=== PATIENT | female | born 1985 | race Caucasian/White ===

== ENCOUNTER 2017-12-27 13:54 | Outpatient (CLI) | payer OTHER ==
[2017-12-27 18:12] LABS: ADD UMIC NO; UR ASCORBIC ACID 40 mg/dL (NEGATIVE); UR BACTERIA FEW /HPF (NONE SEEN); UR BILIRUBIN (Dip) NEGATIVE (NEGATIVE); UR BLOOD (Dip) NEGATIVE (NEGATIVE); UR CALCIUM OXALATE CRYSTAL FEW /HPF (NONE SEEN); UR CLARITY SLIGHTLY CLOUDY (CLEAR); UR COLOR YELLOW (YELLOW); UR GLUCOSE (Dip) 3+ mg/dL (NEGATIVE); UR KETONES (Dip) 1+ mg/dL (NEGATIVE); UR LEUKOCYTE ESTERASE (Dip) NEGATIVE Leu/ul (NEGATIVE); UR MUCUS MODERATE /HPF (NONE SEEN); UR NITRITE (Dip) NEGATIVE (NEGATIVE); UR RBC 2 /HPF (0-5); UR SPECIFIC GRAVITY (Dip) 1.018 (1.003-1.030); UR TOTAL PROTEIN (Dip) NEGATIVE (NEGATIVE); UR UROBILINOGEN (Dip) NEGATIVE (NEGATIVE); UR WBC 4 /HPF (0-5)
[2017-12-27] MEDS: HYDROCODONE/APAP (5/325) TAB PO (20:18)
== END 2017-12-27 20:42 | disposition home or self-care (01) ==
LOC: OBT 13:54 → L-D 13:57 → OBT 20:42
DX: O26.893 Other specified pregnancy related conditions, third trimester (principal); Z3A.31 31 weeks gestation of pregnancy; R10.2 Pelvic and perineal pain
CPT/HCPCS: 76815; 76817; 81001; 81003; 87086

== ENCOUNTER 2018-01-02 19:17 | Outpatient (CLI) | payer OTHER ==
[2018-01-02 20:13] LABS: ADD MAN DIFF? NO; ADD UMIC YES; UR ASCORBIC ACID 40 mg/dL (NEGATIVE); UR BACTERIA FEW /HPF (NONE SEEN); UR BILIRUBIN (Dip) NEGATIVE (NEGATIVE); UR BLOOD (Dip) NEGATIVE (NEGATIVE); UR CALCIUM OXALATE CRYSTAL MANY /HPF (NONE SEEN); UR CLARITY SLIGHTLY CLOUDY (CLEAR); UR COLOR YELLOW (YELLOW); UR GLUCOSE (Dip) 2+ mg/dL (NEGATIVE); UR KETONES (Dip) 2+ mg/dL (NEGATIVE); UR LEUKOCYTE ESTERASE (Dip) NEGATIVE Leu/ul (NEGATIVE); UR MUCUS FEW /HPF (NONE SEEN); UR NITRITE (Dip) NEGATIVE (NEGATIVE); UR RBC 2 /HPF (0-5); UR SPECIFIC GRAVITY (Dip) 1.026 (1.003-1.030); UR SQUAMOUS EPITHELIAL CELL FEW /HPF (FEW); UR TOTAL PROTEIN (Dip) 1+ mg/dl (NEGATIVE); UR UROBILINOGEN (Dip) NEGATIVE (NEGATIVE); UR WBC 5 /HPF (0-5)
[2018-01-02 20:17] LABS: WHITE BLOOD COUNT 10.6 10^3/ul (4.8-10.8)
[2018-01-02 20:17] LABS: BASOPHIL # 0.1 10^3/ul (0.0-0.1); BASOPHILS % 0.5 % (0.0-2.0); EOSINOPHILS # 0.1 10^3/ul (0.0-0.5); EOSINOPHILS % 0.8 % (0.0-7.0); HEMATOCRIT 30.2 % (37.0-47.0); HEMOGLOBIN 10.2 g/dl (12.0-16.0); LYMPHOCYTES # 2.6 10^3/ul (0.8-2.9); LYMPHOCYTES % 24.5 % (15.0-51.0); MEAN CORPUSCULAR HEMOGLOBIN 28.3 pg (29.0-33.0); MEAN CORPUSCULAR HGB CONC 33.8 g/dl (32.0-37.0); MEAN CORPUSCULAR VOLUME 83.7 fl (82.0-101.0); MEAN PLATELET VOLUME 10.2 fl (7.4-10.4); MONOCYTE # 0.5 10^3/ul (0.3-0.9); MONOCYTES % 4.9 % (0.0-11.0); NEUTROPHIL # 7.2 10^3/ul (1.6-7.5); NEUTROPHILS % 67.2 % (39.0-77.0); PLATELET COUNT 205 10^3/UL (140-415); RED BLOOD COUNT 3.61 10^6/ul (4.20-5.40); RED CELL DISTRIBUTION WIDTH 13.7 % (11.5-14.5)
[2018-01-02 20:34] LABS: ALANINE AMINOTRANSFERASE 14 IU/L (13-69); ALBUMIN 3.4 g/dl (3.3-4.9); ALKALINE PHOSPHATASE 73 IU/L (42-121); ANION GAP 12 (5-13); ASPARTATE AMINO TRANSFERASE 23 IU/L (15-46); BLOOD UREA NITROGEN 8 mg/dl (7-20); CALCIUM 9.1 mg/dl (8.4-10.2); CARBON DIOXIDE 18 mmol/L (21-31); CHLORIDE 108 mmol/L (97-110); CREATININE 0.49 mg/dl (0.44-1.00); Estimated GFR > 60 mL/min (>60); GLUCOSE 129 mg/dl (70-220); POTASSIUM 3.9 mmol/L (3.5-5.1); SODIUM 138 mmol/L (135-144); URIC ACID 4.8 mg/dl (3.1-7.9)
[2018-01-02 20:37] LABS: INR 0.91; PROTIME 12.3 Sec (11.9-14.9)
[2018-01-02 20:38] LABS: PARTIAL THROMBOPLASTIN TIME 24.5 Sec (23.0-35.0)
== END 2018-01-02 23:02 | disposition home or self-care (01) ==
LOC: OBT 19:17 → L-D 19:18 → OBT 23:02
DX: O13.3 Gestational [pregnancy-induced] hypertension without significant proteinuria, third trimester (principal); Z3A.32 32 weeks gestation of pregnancy
CPT/HCPCS: 36415; 76818; 80053; 81001; 84560; 85025; 85610; 85730; 87086

== ENCOUNTER 2018-01-05 13:08 | Inpatient (IN) | payer OTHER ==
[2018-01-05 14:05] LABS: ADD MAN DIFF? NO
[2018-01-05 14:09] LABS: BASOPHILS % 0.3 % (0.0-2.0); EOSINOPHILS # 0.1 10^3/ul (0.0-0.5); HEMATOCRIT 30.8 % (37.0-47.0); HEMOGLOBIN 10.2 g/dl (12.0-16.0); LYMPHOCYTES # 2.4 10^3/ul (0.8-2.9); LYMPHOCYTES % 23.6 % (15.0-51.0); MEAN CORPUSCULAR HEMOGLOBIN 27.7 pg (29.0-33.0); MEAN CORPUSCULAR HGB CONC 33.1 g/dl (32.0-37.0); MEAN CORPUSCULAR VOLUME 83.7 fl (82.0-101.0); MEAN PLATELET VOLUME 10.8 fl (7.4-10.4); MONOCYTE # 0.6 10^3/ul (0.3-0.9); MONOCYTES % 5.6 % (0.0-11.0); NEUTROPHIL # 6.8 10^3/ul (1.6-7.5); PLATELET COUNT 178 10^3/UL (140-415); RED BLOOD COUNT 3.68 10^6/ul (4.20-5.40); RED CELL DISTRIBUTION WIDTH 13.9 % (11.5-14.5)
[2018-01-05 14:09] LABS: WHITE BLOOD COUNT 10.2 10^3/ul (4.8-10.8)
[2018-01-05 14:28] LABS: ALANINE AMINOTRANSFERASE 22 IU/L (13-69); ALBUMIN 3.6 g/dl (3.3-4.9); ALBUMIN/GLOBULIN RATIO 1.33; ALKALINE PHOSPHATASE 68 IU/L (42-121); ANION GAP 10 (5-13); ASPARTATE AMINO TRANSFERASE 20 IU/L (15-46); BILIRUBIN,INDIRECT 0.1 mg/dl (0-1.1); BILIRUBIN,TOTAL 0.1 mg/dl (0.2-1.3); BLOOD UREA NITROGEN 6 mg/dl (7-20); CALCIUM 9.3 mg/dl (8.4-10.2); CARBON DIOXIDE 22 mmol/L (21-31); CHLORIDE 106 mmol/L (97-110); CREATININE 0.51 mg/dl (0.44-1.00); Estimated GFR > 60 mL/min (>60); GLUCOSE 78 mg/dl (70-220); INR 0.86; POTASSIUM 4.1 mmol/L (3.5-5.1); PROTIME 11.8 Sec (11.9-14.9); PT RATIO 0.9; SODIUM 138 mmol/L (135-144); TOTAL PROTEIN 6.3 g/dl (6.1-8.1); URIC ACID 4.1 mg/dl (3.1-7.9)
[2018-01-05 14:29] LABS: PARTIAL THROMBOPLASTIN TIME 24.2 Sec (23.0-35.0)
[2018-01-05 14:39] LABS: ADD UMIC YES; UR ASCORBIC ACID 40 mg/dL (NEGATIVE); UR BACTERIA FEW /HPF (NONE SEEN); UR BILIRUBIN (Dip) NEGATIVE (NEGATIVE); UR BLOOD (Dip) NEGATIVE (NEGATIVE); UR CLARITY CLOUDY (CLEAR); UR COLOR YELLOW (YELLOW); UR GLUCOSE (Dip) NEGATIVE (NEGATIVE); UR KETONES (Dip) NEGATIVE (NEGATIVE); UR LEUKOCYTE ESTERASE (Dip) NEGATIVE Leu/ul (NEGATIVE); UR MUCUS FEW /HPF (NONE SEEN); UR NITRITE (Dip) NEGATIVE (NEGATIVE); UR RBC 0 /HPF (0-5); UR SPECIFIC GRAVITY (Dip) 1.018 (1.003-1.030); UR TOTAL PROTEIN (Dip) NEGATIVE (NEGATIVE); UR URIC ACID CRYSTAL MANY /HPF (NONE SEEN); UR UROBILINOGEN (Dip) NEGATIVE (NEGATIVE); UR WBC 7 /HPF (0-5)
[2018-01-05] MEDS: LABETALOL 100 MG TAB PO (21:29)
[2018-01-05] MEDS: ACETAMINOPHEN 325 MG TAB PO (23:05)
[2018-01-06] MEDS: ACETAMINOPHEN 325 MG TAB PO (03:03)
[2018-01-06] MEDS: LABETALOL 100 MG TAB PO ×2 (09:12→21:08)
[2018-01-06] MEDS: PRENATAL VITAMIN PO (09:13)
[2018-01-06] MEDS: FERROUS SULFATE (EC) 325 MG TAB PO (09:13)
[2018-01-06] MEDS: PANTOPRAZOLE (EC) 40 MG TAB PO (10:54)
[2018-01-06 13:44] LABS: COLLECTION PERIOD 24 hrs
[2018-01-06 14:35] LABS: COLLECTION PERIOD 24 hrs; CREATININE CLEARANCE 279.9 mls/min (84.0-162.0); CREATININE,URINE RANDOM 37.37 mg/dl (20-320); SCRET 0.51 mg/dl (0.44-1.00); VOLUME 5500 ml/24hrs
[2018-01-06 14:36] LABS: VOLUME 5500 mls
[2018-01-06] MEDS: BETAMET NA PHOS/AC(6 MG/ML) 5ML INJ IM (17:01)
[2018-01-07] MEDS: PANTOPRAZOLE (EC) 40 MG TAB PO (07:44)
[2018-01-07] MEDS: PRENATAL VITAMIN PO (09:05)
[2018-01-07] MEDS: LABETALOL 100 MG TAB PO (09:06)
[2018-01-07] MEDS: FERROUS SULFATE (EC) 325 MG TAB PO (09:08)
[2018-01-07] MEDS: BETAMET NA PHOS/AC(6 MG/ML) 5ML INJ IM (16:56)
== END 2018-01-07 17:20 | disposition home or self-care (01) | DRG 833 ==
LOC: OBT 13:08 → L-D 13:10 → OBT 14:45 → L-D 14:45
DX: O14.03 Mild to moderate pre-eclampsia, third trimester (principal); Z3A.33 33 weeks gestation of pregnancy; Z79.82 Long term (current) use of aspirin
CPT/HCPCS: 36415; 76818; 80053; 81001; 82575; 84156; 84560; 85025; 85384; 85610; 85730

== ENCOUNTER 2018-01-16 22:54 | Outpatient (CLI) | payer OTHER ==
[2018-01-16 23:46] LABS: ADD MAN DIFF? NO
[2018-01-16 23:49] LABS: BASOPHIL # 0.1 10^3/ul (0.0-0.1); BASOPHILS % 0.6 % (0.0-2.0); EOSINOPHILS # 0.2 10^3/ul (0.0-0.5); EOSINOPHILS % 1.4 % (0.0-7.0); HEMATOCRIT 31.1 % (37.0-47.0); HEMOGLOBIN 10.1 g/dl (12.0-16.0); LYMPHOCYTES # 2.8 10^3/ul (0.8-2.9); LYMPHOCYTES % 25.1 % (15.0-51.0); MEAN CORPUSCULAR HEMOGLOBIN 27.8 pg (29.0-33.0); MEAN CORPUSCULAR HGB CONC 32.5 g/dl (32.0-37.0); MEAN CORPUSCULAR VOLUME 85.7 fl (82.0-101.0); MEAN PLATELET VOLUME 11.1 fl (7.4-10.4); MONOCYTE # 0.8 10^3/ul (0.3-0.9); NEUTROPHILS % 63.1 % (39.0-77.0); PLATELET COUNT 189 10^3/UL (140-415); RED BLOOD COUNT 3.63 10^6/ul (4.20-5.40); RED CELL DISTRIBUTION WIDTH 14.6 % (11.5-14.5)
[2018-01-16 23:49] LABS: WHITE BLOOD COUNT 11.1 10^3/ul (4.8-10.8)
[2018-01-17 00:01] LABS: ADD UMIC NO; UR ASCORBIC ACID 20 mg/dL (NEGATIVE); UR BILIRUBIN (Dip) NEGATIVE (NEGATIVE); UR BLOOD (Dip) NEGATIVE (NEGATIVE); UR CALCIUM OXALATE CRYSTAL FEW /HPF (NONE SEEN); UR CLARITY SLIGHTLY CLOUDY (CLEAR); UR COLOR YELLOW (YELLOW); UR GLUCOSE (Dip) NEGATIVE (NEGATIVE); UR KETONES (Dip) TRACE mg/dL (NEGATIVE); UR LEUKOCYTE ESTERASE (Dip) NEGATIVE Leu/ul (NEGATIVE); UR MUCUS FEW /HPF (NONE SEEN); UR NITRITE (Dip) NEGATIVE (NEGATIVE); UR RBC 2 /HPF (0-5); UR SPECIFIC GRAVITY (Dip) 1.019 (1.003-1.030); UR TOTAL PROTEIN (Dip) NEGATIVE (NEGATIVE); UR UROBILINOGEN (Dip) NEGATIVE (NEGATIVE); UR WBC 3 /HPF (0-5)
[2018-01-17 00:07] LABS: ALANINE AMINOTRANSFERASE 15 IU/L (13-69); ALBUMIN 3.6 g/dl (3.3-4.9); ALBUMIN/GLOBULIN RATIO 1.38; ALKALINE PHOSPHATASE 72 IU/L (42-121); ANION GAP 10 (5-13); ASPARTATE AMINO TRANSFERASE 22 IU/L (15-46); BLOOD UREA NITROGEN 8 mg/dl (7-20); CALCIUM 8.7 mg/dl (8.4-10.2); CARBON DIOXIDE 18 mmol/L (21-31); CHLORIDE 107 mmol/L (97-110); CREATININE 0.43 mg/dl (0.44-1.00); Estimated GFR > 60 mL/min (>60); GLUCOSE 155 mg/dl (70-220); SODIUM 135 mmol/L (135-144); TOTAL PROTEIN 6.2 g/dl (6.1-8.1); URIC ACID 4.2 mg/dl (3.1-7.9)
[2018-01-17] MEDS ORDERED: LABETALOL 100 MG TAB PO (01:00)
[2018-01-17] MEDS: ACETAMINOPHEN 500 MG TAB PO (03:06)
== END 2018-01-17 06:10 | disposition home or self-care (01) ==
LOC: OBT 22:54 → L-D 22:54
DX: O13.3 Gestational [pregnancy-induced] hypertension without significant proteinuria, third trimester (principal); O26.893 Other specified pregnancy related conditions, third trimester; R51 Headache; R42 Dizziness and giddiness; H53.8 Other visual disturbances; R06.02 Shortness of breath; Z3A.34 34 weeks gestation of pregnancy
CPT/HCPCS: 36415; 80053; 81001; 81003; 84560; 85025; 87086

== ENCOUNTER 2018-01-17 06:16 | Emergency (ER) | payer OTHER ==
[2018-01-17 07:29] LABS: ADD MAN DIFF? NO
[2018-01-17 07:33] LABS: WHITE BLOOD COUNT 10.9 10^3/ul (4.8-10.8)
[2018-01-17 07:33] LABS: BASOPHIL # 0.1 10^3/ul (0.0-0.1); BASOPHILS % 0.6 % (0.0-2.0); EOSINOPHILS # 0.2 10^3/ul (0.0-0.5); EOSINOPHILS % 1.4 % (0.0-7.0); HEMATOCRIT 32.8 % (37.0-47.0); HEMOGLOBIN 10.5 g/dl (12.0-16.0); LYMPHOCYTES # 2.6 10^3/ul (0.8-2.9); LYMPHOCYTES % 23.9 % (15.0-51.0); MEAN CORPUSCULAR HEMOGLOBIN 27.2 pg (29.0-33.0); MEAN PLATELET VOLUME 11.6 fl (7.4-10.4); MONOCYTE # 0.6 10^3/ul (0.3-0.9); MONOCYTES % 5.9 % (0.0-11.0); NEUTROPHIL # 7.2 10^3/ul (1.6-7.5); PLATELET COUNT 165 10^3/UL (140-415); RED BLOOD COUNT 3.86 10^6/ul (4.20-5.40); RED CELL DISTRIBUTION WIDTH 14.8 % (11.5-14.5)
[2018-01-17 07:36] LABS: ADD UMIC NO; UR ASCORBIC ACID NEGATIVE (NEGATIVE); UR BILIRUBIN (Dip) NEGATIVE (NEGATIVE); UR BLOOD (Dip) NEGATIVE (NEGATIVE); UR CLARITY CLEAR (CLEAR); UR COLOR YELLOW (YELLOW); UR GLUCOSE (Dip) NEGATIVE (NEGATIVE); UR KETONES (Dip) NEGATIVE (NEGATIVE); UR LEUKOCYTE ESTERASE (Dip) NEGATIVE Leu/ul (NEGATIVE); UR NITRITE (Dip) NEGATIVE (NEGATIVE); UR SPECIFIC GRAVITY (Dip) 1.013 (1.003-1.030); UR TOTAL PROTEIN (Dip) NEGATIVE (NEGATIVE); UR UROBILINOGEN (Dip) NEGATIVE (NEGATIVE)
[2018-01-17 07:50] LABS: ALANINE AMINOTRANSFERASE 19 IU/L (13-69); ALBUMIN 3.6 g/dl (3.3-4.9); ALBUMIN/GLOBULIN RATIO 1.33; ALKALINE PHOSPHATASE 76 IU/L (42-121); AMYLASE 44 U/L (11-123); ANION GAP 10 (5-13); ASPARTATE AMINO TRANSFERASE 23 IU/L (15-46); BILIRUBIN,INDIRECT 0.1 mg/dl (0-1.1); BILIRUBIN,TOTAL 0.1 mg/dl (0.2-1.3); BLOOD UREA NITROGEN 7 mg/dl (7-20); CALCIUM 8.8 mg/dl (8.4-10.2); CARBON DIOXIDE 20 mmol/L (21-31); CHLORIDE 107 mmol/L (97-110); CREATININE 0.41 mg/dl (0.44-1.00); Estimated GFR > 60 mL/min (>60); GLUCOSE 86 mg/dl (70-220); LIPASE 115 U/L (23-300); POTASSIUM 4.2 mmol/L (3.5-5.1); SODIUM 137 mmol/L (135-144); TOTAL PROTEIN 6.3 g/dl (6.1-8.1)
[2018-01-17 07:52] LABS: INR 0.92; PARTIAL THROMBOPLASTIN TIME 23.6 Sec (23.0-35.0); PROTIME 12.4 Sec (11.9-14.9)
[2018-01-17 07:53] LABS: URIC ACID 4.5 mg/dl (3.1-7.9)
[2018-01-17 08:01] LABS: TROPONIN-I < 0.012 ng/ml (0.000-0.120)
== END 2018-01-17 11:53 | disposition home or self-care (01) ==
LOC: E/R 06:16
DX: O99.89 Other specified diseases and conditions complicating pregnancy, childbirth and the puerperium (principal); R06.02 Shortness of breath; Z79.82 Long term (current) use of aspirin; Z3A.35 35 weeks gestation of pregnancy
CPT/HCPCS: 78597; 80053; 81003; 82150; 83690; 84484; 84560; 85025; 85610; 85730; 87086; 93005; 99284-25

== ENCOUNTER 2018-01-22 13:15 | Inpatient (IN) | payer OTHER ==
[2018-01-22 14:50] LABS: ADD MAN DIFF? NO
[2018-01-22 14:53] LABS: WHITE BLOOD COUNT 9.5 10^3/ul (4.8-10.8)
[2018-01-22 14:53] LABS: BASOPHIL # 0.1 10^3/ul (0.0-0.1); BASOPHILS % 0.5 % (0.0-2.0); EOSINOPHILS # 0.1 10^3/ul (0.0-0.5); EOSINOPHILS % 1.5 % (0.0-7.0); HEMATOCRIT 32.1 % (37.0-47.0); HEMOGLOBIN 10.5 g/dl (12.0-16.0); LYMPHOCYTES # 2.3 10^3/ul (0.8-2.9); LYMPHOCYTES % 24.6 % (15.0-51.0); MEAN CORPUSCULAR HEMOGLOBIN 27.8 pg (29.0-33.0); MEAN CORPUSCULAR HGB CONC 32.7 g/dl (32.0-37.0); MEAN CORPUSCULAR VOLUME 84.9 fl (82.0-101.0); MONOCYTE # 0.6 10^3/ul (0.3-0.9); MONOCYTES % 6.1 % (0.0-11.0); NEUTROPHIL # 6.1 10^3/ul (1.6-7.5); NEUTROPHILS % 64.5 % (39.0-77.0); PLATELET COUNT 186 10^3/UL (140-415); RED BLOOD COUNT 3.78 10^6/ul (4.20-5.40); RED CELL DISTRIBUTION WIDTH 14.8 % (11.5-14.5)
[2018-01-22 14:55] LABS: ADD UMIC NO; UR ASCORBIC ACID 40 mg/dL (NEGATIVE); UR BACTERIA FEW /HPF (NONE SEEN); UR BILIRUBIN (Dip) NEGATIVE (NEGATIVE); UR BLOOD (Dip) NEGATIVE (NEGATIVE); UR CLARITY SLIGHTLY CLOUDY (CLEAR); UR COLOR YELLOW (YELLOW); UR GLUCOSE (Dip) NEGATIVE (NEGATIVE); UR KETONES (Dip) NEGATIVE (NEGATIVE); UR LEUKOCYTE ESTERASE (Dip) NEGATIVE Leu/ul (NEGATIVE); UR MUCUS FEW /HPF (NONE SEEN); UR NITRITE (Dip) NEGATIVE (NEGATIVE); UR RBC 1 /HPF (0-5); UR TOTAL PROTEIN (Dip) NEGATIVE (NEGATIVE); UR UROBILINOGEN (Dip) NEGATIVE (NEGATIVE); UR WBC 2 /HPF (0-5)
[2018-01-22 15:26] LABS: ALANINE AMINOTRANSFERASE 13 IU/L (13-69); ALBUMIN 3.4 g/dl (3.3-4.9); ALBUMIN/GLOBULIN RATIO 1.09; ALKALINE PHOSPHATASE 77 IU/L (42-121); ANION GAP 8 (5-13); ASPARTATE AMINO TRANSFERASE 24 IU/L (15-46); BILIRUBIN,INDIRECT 0.2 mg/dl (0-1.1); BILIRUBIN,TOTAL 0.2 mg/dl (0.2-1.3); BLOOD UREA NITROGEN 11 mg/dl (7-20); CALCIUM 9.1 mg/dl (8.4-10.2); CARBON DIOXIDE 21 mmol/L (21-31); CHLORIDE 107 mmol/L (97-110); CREATININE 0.49 mg/dl (0.44-1.00); Estimated GFR > 60 mL/min (>60); GLUCOSE 105 mg/dl (70-220); POTASSIUM 4.3 mmol/L (3.5-5.1); SODIUM 136 mmol/L (135-144); TOTAL PROTEIN 6.5 g/dl (6.1-8.1)
[2018-01-22] MEDS: LACTATED RINGER'S 1,000 ML IV (16:33)
[2018-01-22] MEDS: MAGNESIUM SULFATE 20 GM/500 ML 500 ML IV (16:37)
[2018-01-22] MEDS: LABETALOL 100 MG TAB PO (21:08)
[2018-01-23] MEDS: ACETAMINOPHEN 325 MG TAB PO (00:52)
[2018-01-23 01:40] LABS: MAGNESIUM 3.6 mg/dl (1.7-2.5)
[2018-01-23] MEDS ORDERED: MAGNESIUM SULFATE 4 GM/100 ML 100 ML (02:17)
[2018-01-23] MEDS: MAGNESIUM SULFATE 4 GM/100 ML 100 ML IV (02:21)
[2018-01-23] MEDS: LACTATED RINGER'S 1,000 ML IV ×2 (02:23→18:44)
[2018-01-23] MEDS: ACETAMINOPHEN 1000MG/100ML IV 100 ML IVPB (02:31)
[2018-01-23] MEDS: MAGNESIUM SULFATE 20 GM/500 ML 500 ML IV ×2 (02:49→13:52)
[2018-01-23 03:35] LABS: ADD MAN DIFF? NO
[2018-01-23 03:36] LABS: WHITE BLOOD COUNT 9.1 10^3/ul (4.8-10.8)
[2018-01-23 03:36] LABS: BASOPHILS % 0.4 % (0.0-2.0); EOSINOPHILS # 0.1 10^3/ul (0.0-0.5); EOSINOPHILS % 1.5 % (0.0-7.0); HEMATOCRIT 31.2 % (37.0-47.0); HEMOGLOBIN 10.1 g/dl (12.0-16.0); LYMPHOCYTES # 2.5 10^3/ul (0.8-2.9); LYMPHOCYTES % 27.2 % (15.0-51.0); MEAN CORPUSCULAR HEMOGLOBIN 27.6 pg (29.0-33.0); MEAN CORPUSCULAR HGB CONC 32.4 g/dl (32.0-37.0); MEAN CORPUSCULAR VOLUME 85.2 fl (82.0-101.0); MONOCYTE # 0.6 10^3/ul (0.3-0.9); NEUTROPHIL # 5.7 10^3/ul (1.6-7.5); NEUTROPHILS % 62.4 % (39.0-77.0); PLATELET COUNT 175 10^3/UL (140-415); RED BLOOD COUNT 3.66 10^6/ul (4.20-5.40); RED CELL DISTRIBUTION WIDTH 14.7 % (11.5-14.5)
[2018-01-23 03:56] LABS: INR 0.95; PROTIME 12.8 Sec (11.9-14.9)
[2018-01-23 03:57] LABS: PARTIAL THROMBOPLASTIN TIME 23.2 Sec (23.0-35.0)
[2018-01-23 03:58] LABS: ALANINE AMINOTRANSFERASE 16 IU/L (13-69); ALBUMIN 3.3 g/dl (3.3-4.9); ALBUMIN/GLOBULIN RATIO 1.06; ALKALINE PHOSPHATASE 85 IU/L (42-121); ANION GAP 8 (5-13); ASPARTATE AMINO TRANSFERASE 22 IU/L (15-46); BILIRUBIN,INDIRECT 0.2 mg/dl (0-1.1); BILIRUBIN,TOTAL 0.2 mg/dl (0.2-1.3); BLOOD UREA NITROGEN 10 mg/dl (7-20); CARBON DIOXIDE 21 mmol/L (21-31); CHLORIDE 106 mmol/L (97-110); CREATININE 0.57 mg/dl (0.44-1.00); Estimated GFR > 60 mL/min (>60); GLUCOSE 93 mg/dl (70-220); POTASSIUM 4.3 mmol/L (3.5-5.1); SODIUM 135 mmol/L (135-144); TOTAL PROTEIN 6.4 g/dl (6.1-8.1); URIC ACID 4.7 mg/dl (3.1-7.9)
[2018-01-23] MEDS ORDERED: morphine 10 MG INJ IV ×2 (04:00→04:30)
[2018-01-23 04:11] LABS: ADD UMIC YES; UR ASCORBIC ACID NEGATIVE (NEGATIVE); UR BILIRUBIN (Dip) NEGATIVE (NEGATIVE); UR BLOOD (Dip) 2+ mg/dL (NEGATIVE); UR CLARITY CLEAR (CLEAR); UR COLOR STRAW (YELLOW); UR GLUCOSE (Dip) NEGATIVE (NEGATIVE); UR KETONES (Dip) NEGATIVE (NEGATIVE); UR LEUKOCYTE ESTERASE (Dip) NEGATIVE Leu/ul (NEGATIVE); UR NITRITE (Dip) NEGATIVE (NEGATIVE); UR RBC 0 /HPF (0-5); UR SPECIFIC GRAVITY (Dip) 1.009 (1.003-1.030); UR TOTAL PROTEIN (Dip) NEGATIVE (NEGATIVE); UR UROBILINOGEN (Dip) NEGATIVE (NEGATIVE); UR WBC 0 /HPF (0-5)
[2018-01-23 07:08] LABS: MAGNESIUM 4.2 mg/dl (1.7-2.5)
[2018-01-23] MEDS: PRENATAL VITAMIN PO (09:25)
[2018-01-23] MEDS: LABETALOL 100 MG TAB PO ×2 (09:28→20:57)
[2018-01-23] MEDS: METOCLOPRAMIDE 10 MG INJ IV (11:32)
[2018-01-23] MEDS: FAMOTIDINE 20 MG INJ IV (11:32)
[2018-01-23] MEDS: CITRIC ACID/NA CITRATE 30 ML CUP PO (11:32)
[2018-01-23] MEDS: CEFAZOLIN 2 GM/50 ML (PMX) 50 ML IVPB (11:33)
[2018-01-23] MEDS ORDERED: morphine SULFATE/PF (10 MG/10 ML) INJ (11:44)
[2018-01-23 12:06] LABS: HEPATITIS B SURFACE ANTIGEN NEGATIVE (NEGATIVE)
[2018-01-23] MEDS ORDERED: PHENYLephrine (100 MCG/ML) 5ML SYG (12:16)
[2018-01-23] MEDS ORDERED: OXYTOCIN 30 UNITS/LR 500 ML IV ×2 (12:25→16:30)
[2018-01-23] MEDS ORDERED: PROCHLORPERAZINE 10 MG INJ IV (12:30)
[2018-01-23] MEDS ORDERED: MEPERIDINE 25 MG INJ IV (12:30)
[2018-01-23] MEDS ORDERED: FENTAnyl 50 MCG/ML VIAL IV ×3 (12:30)
[2018-01-23] MEDS ORDERED: ONDANSETRON 4 MG INJ IV ×2 (12:30→13:30)
[2018-01-23] MEDS ORDERED: LABETALOL HCL 20MG INJ IV (12:30)
[2018-01-23] MEDS ORDERED: HYDROmorphONE 1 MG/5 ML IV SYRINGE IV ×3 (12:30)
[2018-01-23] MEDS ORDERED: NALOXONE (0.4 MG/ML) INJ IV (13:30)
[2018-01-23] MEDS ORDERED: HYDROmorphONE 0.5 MG/0.5 ML SYG IV ×2 (13:30)
[2018-01-23] MEDS ORDERED: ZOLPIDEM 5 MG TAB PO (13:30)
[2018-01-23] MEDS: OXYTOCIN 30 UNITS/LR 500 ML IV ×3 (13:54→20:56)
[2018-01-23] MEDS: KETOROLAC 30 MG INJ IV ×2 (14:22→20:59)
[2018-01-23] MEDS: DIPHENHYDRAMINE 50 MG INJ IV ×2 (14:50→20:58)
[2018-01-23] MEDS ORDERED: MISOPROSTOL 200 MCG TAB PR (16:30)
[2018-01-23] MEDS ORDERED: LANOLIN 7 GM TUBE TOP (16:30)
[2018-01-23] MEDS ORDERED: METHYLERGONOVINE 0.2 MG INJ IM (16:30)
[2018-01-23] MEDS ORDERED: CARBOPROST 250 MCG INJ IM (16:30)
[2018-01-23] MEDS: IBUPROFEN 600 MG TAB PO (18:00)
[2018-01-23 18:59] LABS: MAGNESIUM 4.7 mg/dl (1.7-2.5)
[2018-01-23] MEDS: CEFAZOLIN 1 GM/50 ML (PMX) 50 ML IVPB (21:22)
[2018-01-24] MEDS: OXYTOCIN 30 UNITS/LR 500 ML IV ×2 (00:22→04:46)
[2018-01-24] MEDS: MAGNESIUM SULFATE 20 GM/500 ML 500 ML IV ×2 (00:41→10:05)
[2018-01-24 00:51] LABS: MAGNESIUM 4.5 mg/dl (1.7-2.5)
[2018-01-24] MEDS: KETOROLAC 30 MG INJ IV ×2 (03:33→09:55)
[2018-01-24] MEDS: DIPHENHYDRAMINE 50 MG INJ IV (03:45)
[2018-01-24] MEDS: IBUPROFEN 600 MG TAB PO ×5 (06:00→23:45)
[2018-01-24 09:46] LABS: ADD MAN DIFF? NO
[2018-01-24 09:53] LABS: WHITE BLOOD COUNT 9.4 10^3/ul (4.8-10.8)
[2018-01-24 09:53] LABS: BASOPHILS % 0.3 % (0.0-2.0); EOSINOPHILS # 0.1 10^3/ul (0.0-0.5); EOSINOPHILS % 0.5 % (0.0-7.0); HEMATOCRIT 29.7 % (37.0-47.0); HEMOGLOBIN 9.6 g/dl (12.0-16.0); LYMPHOCYTES # 1.8 10^3/ul (0.8-2.9); LYMPHOCYTES % 18.8 % (15.0-51.0); MEAN CORPUSCULAR HEMOGLOBIN 27.7 pg (29.0-33.0); MEAN CORPUSCULAR HGB CONC 32.3 g/dl (32.0-37.0); MEAN CORPUSCULAR VOLUME 85.8 fl (82.0-101.0); MEAN PLATELET VOLUME 11.1 fl (7.4-10.4); MONOCYTE # 0.6 10^3/ul (0.3-0.9); MONOCYTES % 5.9 % (0.0-11.0); NEUTROPHIL # 6.9 10^3/ul (1.6-7.5); NEUTROPHILS % 73.2 % (39.0-77.0); PLATELET COUNT 149 10^3/UL (140-415); RED BLOOD COUNT 3.46 10^6/ul (4.20-5.40); RED CELL DISTRIBUTION WIDTH 15.1 % (11.5-14.5)
[2018-01-24] MEDS: LABETALOL 100 MG TAB PO ×2 (10:01→22:47)
[2018-01-24] MEDS: SENNA/DOCUSATE NA (8.6MG/50MG) TAB PO ×2 (10:02→22:47)
[2018-01-24] MEDS: PRENATAL VITAMIN PO (10:02)
[2018-01-24 10:25] LABS: MAGNESIUM 4.3 mg/dl (1.7-2.5)
[2018-01-24] MEDS ORDERED: DIPHENHYDRAMINE 50 MG INJ IV (12:00)
[2018-01-24 12:41] LABS: MAGNESIUM 4.2 mg/dl (1.7-2.5)
[2018-01-24] MEDS: LACTATED RINGER'S 1,000 ML IV (12:59)
[2018-01-24] MEDS: HYDROCODONE/APAP (5/325) TAB PO (19:01)
[2018-01-24] MEDS: OXYCODONE/ACETAMINOPHEN (5/325) TAB PO (23:31)
[2018-01-25] MEDS: OXYCODONE/ACETAMINOPHEN (5/325) TAB PO ×3 (04:16→18:02)
[2018-01-25] MEDS: IBUPROFEN 600 MG TAB PO ×4 (06:24→23:59)
[2018-01-25] MEDS: SENNA/DOCUSATE NA (8.6MG/50MG) TAB PO ×2 (08:47→23:08)
[2018-01-25] MEDS: PRENATAL VITAMIN PO (08:47)
[2018-01-25] MEDS: LABETALOL 100 MG TAB PO ×2 (08:50→23:08)
[2018-01-26] MEDS: IBUPROFEN 600 MG TAB PO ×3 (06:11→17:27)
[2018-01-26] MEDS: OXYCODONE/ACETAMINOPHEN (5/325) TAB PO ×5 (06:12→20:25)
[2018-01-26] MEDS: LABETALOL 100 MG TAB PO ×2 (09:00→20:24)
[2018-01-26] MEDS: DIPHTH/TET/ACEL PERTUSS (ADULT) 0.5 ML VIAL IM* (09:00)
[2018-01-26] MEDS: SENNA/DOCUSATE NA (8.6MG/50MG) TAB PO ×2 (10:41→20:24)
[2018-01-26] MEDS: PRENATAL VITAMIN PO (10:41)
[2018-01-26] MEDS: HYDROCODONE/APAP (5/325) TAB PO (17:28)
[2018-01-27] MEDS: IBUPROFEN 600 MG TAB PO ×3 (00:19→12:37)
[2018-01-27] MEDS: HYDROCODONE/APAP (5/325) TAB PO ×3 (00:20→10:35)
[2018-01-27] MEDS: LABETALOL 100 MG TAB PO (08:43)
[2018-01-27] MEDS: PRENATAL VITAMIN PO (08:54)
[2018-01-27] MEDS: SENNA/DOCUSATE NA (8.6MG/50MG) TAB PO (08:54)
== END 2018-01-27 15:00 | disposition home or self-care (01) | DRG 788 ==
LOC: OBT 13:15 → L-D 01-23 03:02 → OBT 15:54 → PP1 01-23 15:25 → L-D 15:54 → PP1 22:42
PROC: 10D00Z1 Extraction of Products of Conception, Low, Open Approach (ICD-10-PCS; principal; 2018-01-23 11:45)
DX: O13.4 Gestational [pregnancy-induced] hypertension without significant proteinuria, complicating childbirth (principal); O69.81X0 Labor and delivery complicated by cord around neck, without compression, not applicable or unspecified; Z3A.35 35 weeks gestation of pregnancy; Z37.0 Single live birth
CPT/HCPCS: 76818; 80053; 81001; 81003; 83735; 84560; 85025; 85384; 85610; 85730; 86850; 86900; 86901; 87340; 90715; 99464